=== PATIENT | female | born 1975 | race American Indian/Alaskan Native ===

== ENCOUNTER 2022-01-17 09:15 | Day surgery (SDC) | payer OTHER ==
[~2022-01-17 09:15] MED LIST: SODIUM CHLORIDE 0.9% 1000 ML 1,000 ML IV SCH
[2022-01-17] MEDS ORDERED: LIDOCAINE MPF (2%) 20 MG/1 ML VIAL 5 ML ONE (10:11)
[2022-01-17] MEDS ORDERED: ONDANSETRON 4 MG/2 ML INJ ONE (10:11)
[2022-01-17] MEDS ORDERED: propofoL 200 MG/20 ML VIAL IV ONE ×2 (10:12→10:31)
[2022-01-17] MEDS ORDERED: fentaNYL 100 MCG/2 ML INJ ONE (10:12)
--- NOTE | 2022-01-17 11:01 | Anesthesia Day of Surgery ---
Anesthesia Day of Surgery - Day of Surgery Patient Examined: Yes Patient H&P Reviewed: Yes Patient is NPO: Yes
--- NOTE | 2022-01-17 11:01 | Anesthesia Consultation ---
Anesthesia Consult and Med Hx Date of service: 01/17/22 - Airway Anesthetic Teeth Evaluation: Good ROM Head & Neck: Adequate Mental/Hyoid Distance: Adequate Mallampati Class: Class II Intubation Access Assessment: Probably Good - Pre-Operative Health Status ASA Pre-Surgery Classification: ASA1 Proposed Anesthetic Plan: MAC - Pulmonary Hx Smoking: No SOB: No - Cardiovascular System Hx Hypertension: No - Central Nervous System CVA: No - Endocrine Hx Renal Disease: No Hx Liver Disease: No Hx Insulin Dependent Diabetes: No Hx Non-Insulin Dependent Diabetes: No Hx Thyroid Disease: No
--- NOTE | 2022-01-17 11:02 | Procedure Note ---
Date of procedure: 01/17/22 Pre-op diagnosis: Dysphagai/ Abdominal Pain/ colitis Post-op diagnosis: other (Mild, Benign Esophageal Stenosis (s/p Balloon dilation)/ Mild to Moderate, Erosive Esophagitis/ R/O Eosinophilic Esophagitis/ Gastritis/ Multiple, Small rectoSigmoid Polyps (possibly Hyperplastic)/ R/O Ile itis/ R/O Microscopic Colitis/ Minor, Internal Hemorrhoids) Procedure: EGD with cold biopsy and Esophageal balloondilation (20 mm)/ Colonoscopy with Cold Biopsy Anesthesia: MAC Surgeon: KATHERINE OTT Estimated blood loss: minimal Pathology: list Specimen disposition: to lab Condition: stable Disposition: same day (Treat with PPI, Reglan.OTC Probiotic and prn Bentyl andavoid aspirin and NSAID for 5 days, otherwise resume previous medication and F/U in 1 to 2 weeks ([phone]).)
--- NOTE | 2022-01-17 11:06 | Operative Report ---
DATE OF SURGERY: 01/17/2022 PROCEDURE: EGD with biopsy and status post balloon dilation. INDICATIONS: This is a 46-year-old -[place] female who has had oophorectomy done, has been having abdominal pain and dysphagia. EGD was done to assess for the dysphagia and to do an esophageal dilation if needed. DESCRIPTION OF PROCEDURE: Procedure was done after getting informed consent with MAC anesthesia. The instrument was passed through the hypopharynx into the esophagus, which showed some mild benign esophageal stenosis. This was dilated at the end of the procedure with a 20 mm balloon. The stomach showed [id number] distal erosive esophagitis. Photodocumentation and biopsy was done to assess for the severity of the erosive esophagitis. Biopsy was also done from the mid esophagus to assess for any eosinophilic esophagitis. Stomach showed antral erosion and gastritis. Biopsy was done from the gastric antrum, gastric body and angular incisura to rule out for H. pylori and atrophic gastritis. The pylorus was patent. The duodenum in the first and second portion appeared normal. ASSESSMENT: Dysphagia secondary to mild benign esophageal stenosis, status post dilation, mild to moderate erosive esophagitis, rule out eosinophilic esophagitis, gastric erosion, gastritis. PLAN: To treat the patient with PPI and also to treat the patient with Reglan and encourage the patient to take fiber supplements and avoid aspirin and aspirin-related products for the next few days and follow up in the office in 1-2 weeks' time. A colonoscopy will also be done to assess for the patient's abdominal pain and discomfort. Procedure was done in the GI lab with assistance of the GI lab team, which included the GI nurse, the integration technician and with assistance of anesthesia. TID: [id number] RECEIPT: [id number] GERALD/RANJITH
--- NOTE | 2022-01-17 11:11 | Operative Report ---
DATE OF SURGERY: 01/17/2022 PROCEDURE PERFORMED: Colonoscopy with biopsy. INDICATIONS: This is a 46-year-old -[place] female who had an EGD done prior to the colonoscopy because of dysphagia and was noted to have some mild benign esophageal stenosis as well as some esophagitis and gastritis, but no peptic ulcer disease. Colonoscopy was done for lower abdominal pain. DESCRIPTION OF PROCEDURE: Procedure was done after getting informed consent with MAC anesthesia. Initial rectal examination was unremarkable. The instrument was passed through the rectum onto the cecum, which was identified with ileocecal valve and appendiceal orifice. Visualization was fair to good. The terminal ileum was intubated, showed normal mucosa. Biopsy was done to rule out for possible ileitis. Cecum, ascending colon, transverse colon, descending colon, and sigmoid likewise showed normal mucosa. Random biopsies were done to rule out for possible microscopic colitis. There were 3 small polyps noted in the rectosigmoid area, possibly hyperplastic that were removed by cold biopsy with minimal bleeding and the rectum showed some minor internal hemorrhoid on the retroverted view. ASSESSMENT: Abdominal pain, rule out microscopic colitis, rule out ileitis, small rectosigmoid polyps, possibly hyperplastic, minor internal hemorrhoid. The patient will be treated with Bentyl. Encouraged to take fiber supplements, avoid aspirin and aspirin-related products, will be placed on a PPI as well as Reglan because of the EGD findings of gastritis and esophagitis and also encouraged to take probiotics [id number] and follow up in the office in 1-2 weeks' time. Procedure was done in the GI lab with assistance of the GI lab team, which included the GI nurse, the manager technical sales and with assistance of anesthesia. TID: [id number] RECEIPT: [id number] GERALD/KEITH
[2022-01-17 14:05] VITALS: BP 122/64
--- NOTE | 2022-01-17 14:38 | Post Anesthesia Evaluation ---
- Post Anesthesia Evaluation Patient Participated: Yes Airway Patent: Yes Stable Respiratory Function: Yes Nausea/Vomiting: No Temp > 96.8F: Yes Pain Manageable: Yes Adequeate Hydration: Yes Anesthesia Complications: No
== END 2022-01-17 11:55 | disposition home or self-care (01) ==
LOC: GIO 09:15
DX: R10.9 Unspecified abdominal pain (principal); R13.10 Dysphagia, unspecified; K22.2 Esophageal obstruction; K29.70 Gastritis, unspecified, without bleeding; K21.00 Gastro-esophageal reflux disease with esophagitis, without bleeding; K64.8 Other hemorrhoids; K63.5 Polyp of colon; K63.89 Other specified diseases of intestine; K31.89 Other diseases of stomach and duodenum; Z79.899 Other long term (current) drug therapy
CPT/HCPCS: 43239; 43249; 45380; 88305; 88342; C1726; J2405; J2704; J3010; J3490; J7030; J7120; Q0162